=== PATIENT | female | born 1965 | race Caucasian/White ===

== ENCOUNTER → 2017-11-03 | Outpatient (CLI) | payer OTHER ==
[2017-11-03 08:21] LABS: Basophils % (A) 1 %; Eosinophils # (A) 0.2 k/uL (0-0.7); Eosinophils % (A) 4 %; HCT 41.4 % (34.0-46.0); HGB 13.1 gm/dL (11.4-16.0); Lymphocytes # (A) 1.8 k/uL (1.0-4.8); Lymphocytes % (A) 39 %; MCH 29.6 pg (25.0-35.0); MCHC 31.7 g/dL (31.0-37.0); MCV 93.2 fL (80.0-100.0); Mean Platelet Volume 7.1; Monocytes # (A) 0.3 k/uL (0-1.0); Monocytes % (A) 6 %; Neutrophils # (A) 2.2 k/uL (1.3-7.7); Neutrophils % (A) 48 %; Platelet Count 288 k/uL (150-450); RBC 4.44 m/uL (3.80-5.40); RDW 13.1 % (11.5-15.5); WBC 4.6 k/uL (3.8-10.6)
[2017-11-03 08:41] LABS: ALT 29 U/L (9-52); AST 34 U/L (14-36); Albumin 4.1 g/dL (3.5-5.0); Alkaline Phosphatase 70 U/L (38-126); Anion Gap 7 mmol/L; Blood Urea Nitrogen 11 mg/dL (7-17); Calcium 9.4 mg/dL (8.4-10.2); Carbon Dioxide 27 mmol/L (22-30); Chloride 109 mmol/L (98-107); Cholesterol 226 mg/dL (<200); Glucose 91 mg/dL (74-99); Potassium 4.5 mmol/L (3.5-5.1); Sodium 143 mmol/L (137-145); Total Bilirubin 0.6 mg/dL (0.2-1.3); Total Protein 6.8 g/dL (6.3-8.2); Triglycerides 61 mg/dL (<150)
[2017-11-03 08:49] LABS: LDL Cholesterol,Calculated 89 mg/dL (0-99)
[2017-11-03 09:01] LABS: HDL Cholesterol 125 mg/dL (40-60)
== END | disposition home or self-care (01) ==
LOC: LABWHC1 06:51
PROVIDERS: ATTEND Nurse Practitioner Women's Health
DX: Z00.00 Encounter for general adult medical examination without abnormal findings (principal); E78.00 Pure hypercholesterolemia, unspecified
CPT/HCPCS: 36415; 80053; 80061; 84439; 84443; 85025

== ENCOUNTER 2020-05-16 11:49 | Emergency (ER) | payer OTHER ==
[2020-05-16] MEDS ORDERED: SODIUM CHLORIDE 0.9% 1,000 ML IV STA (14:32)
--- NOTE | 2020-05-16 14:48 | ED ---
SOB HPI - General Chief Complaint: Shortness of Breath Stated Complaint: SOB/arm pain Time Seen by Provider: 05/16/20 14:03 Source: patient, RN notes reviewed Mode of arrival: ambulatory Limitations: no limitations - History of Present Illness Initial Comments: Patient is a 54-year-old female that just to the emergency department with shortness of breath and cough. She noted that she's been having symptoms for approximately 3 days but denies being tested for Covid. She notes that she's been trying to ride it out at home with conservative management. She notes that she finally came in because she was started to feel a little worse and was having some neck tightness that was sending numbness and tingling down her left arm. She notes she does have full range of motion and strength in her left arm. She denied any chest pain. She states that she came in to get evaluated. She denied any chest pain headache nausea vomiting diarrhea constipation fever fatigue chills. - Related Data Home Medications Medication Instructions Recorded Confirmed Ergocalciferol (Vitamin D2) 1,250 mcg PO MO 05/16/20 05/16/20 [Drisdol (50,000 Iu)] Escitalopram Oxalate [Lexapro] 20 mg PO DAILY 05/16/20 05/16/20 Previous Rx's Medication Instructions Recorded RX: Azithromycin [Zithromax Z-pack 0 mg PO DIRECTED #1 pack 05/16/20 (6 tabs)] Allergies Allergy/AdvReac Type Severity Reaction Status Date / Time No Known Allergies Allergy Verified 05/16/20 12:40 Review of Systems ROS Statement: Those systems with pertinent positive or pertinent negative responses have been documented in the HPI. ROS Other: All systems not noted in ROS Statement are negative. Past Medical History Past Medical History: No Reported History History of Any Multi-Drug Resistant Organisms: None Reported Past Surgical History: No Surgical Hx Reported Past Psychological History: No Psychological Hx Reported Smoking Status: Never smoker Past Alcohol Use History: Occasional Past Drug Use History: None Reported General Exam Limitations: no limitations General appearance: alert, in no apparent distress Head exam: Present: atraumatic, normocephalic, normal inspection Eye exam: Present: normal appearance, PERRL, EOMI. Absent: scleral icterus, conjunctival injection, periorbital swelling Neck exam: Present: normal inspection. Absent: tenderness, meningismus, lym phadenopathy Respiratory exam: Present: normal lung sounds bilaterally. Absent: respiratory distress, wheezes, rales, rhonchi, stridor Cardiovascular Exam: Present: regular rate, normal rhythm, normal heart sounds. Absent: systolic murmur, diastolic murmur, rubs, gallop, clicks GI/Abdominal exam: Present: soft, normal bowel sounds. Absent: distended, tenderness, guarding, rebound, rigid Extremities exam: Present: normal inspection, full ROM, normal capillary refill. Absent: tenderness, pedal edema, joint swelling, calf tenderness Neurological exam: Present: alert, oriented X3, CN II-XII intact Expanded Cranial nerves: EOM's Intact: Normal, Nystagmus: Normal Motor strength exam: RUE: 5, LUE: 5, RLE: 5, LLE: 5 Psychiatric exam: Present: normal affect, normal mood Skin exam: Present: warm, dry, intact, normal color. Absent: rash Course Vital Signs 05/16/20 05/16/20 05/16/20 12:35 15:05 16:30 Temperature 99.3 F Pulse Rate 95 67 67 Respiratory 19 18 18 Rate Blood Pressure 100/67 107/69 111/69 O2 Sat by Pulse 99 99 98 Oximetry Medical Decision Making - Medical Decision Making The 4-year-old female complaining of shortness of breath with cough. 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 D-dimer elevated, CT chest angio for pulmonary embolism ordered. CT chest negative for any acute pulmonary embolism lying case discussed with Dr. Melendez, patient to discharge home with antibiotics and follow-up primary care. - Lab Data Result diagrams: 05/16/20 15:02 05/16/20 15:02 Lab Results 05/16/20 05/16/20 05/16/20 Range/Units 15:02 15:02 15:02 WBC 3.6 L (3.8-10.6) k/uL RBC 4.58 (3.80-5.40) m/uL Hgb 14.2 (11.4-16.0) gm/dL Hct 41.6 (34.0-46.0) % MCV 91.0 (80.0-100.0) fL MCH 31.1 (25.0-35.0) pg MCHC 34.2 (31.0-37.0) g/dL RDW 13.1 (11.5-15.5) % Plt Count 202 (150-450) k/uL MPV 7.8 Neutrophils % 61 % Lymphocytes % 27 % Monocytes % 10 % Eosinophils % 0 % Basophils % 0 % Neutrophils # 2.2 (1.3-7.7) k/uL Lymphocytes # 1.0 (1.0-4.8) k/uL Monocytes # 0.4 (0-1.0) k/uL Eosinophils # 0.0 (0-0.7) k/uL Basophils # 0.0 (0-0.2) k/uL PT 10.2 (9.0-12.0) sec INR 0.9 (<1.2) APTT 25.6 (22.0-30.0) sec D-Dimer 1.88 H (<0.60) mg/L FEU Sodium 136 L (137-145) mmol/L Potassium 4.4 (3.5-5.1) mmol/L Chloride 104 (98-107) mmol/L Carbon Dioxide 25 (22-30) mmol/L Anion Gap 7 mmol/L BUN 10 (7-17) mg/dL Creatinine 0.67 (0.52-1.04) mg/dL Est GFR (CKD-EPI)AfAm >90 (>60 ml/min/1.73 sqM) Est GFR (CKD-EPI)NonAf >90 (>60 ml/min/1.73 sqM) Glucose 95 (74-99) mg/dL Plasma Lactic Acid Jamal (0.7-2.0) mmol/L Calcium 8.8 (8.4-10.2) mg/dL Total Bilirubin 0.4 (0.2-1.3) mg/dL AST 37 H (14-36) U/L ALT 28 (4-34) U/L Alkaline Phosphatase 93 (38-126) U/L Troponin I (0.000-0.034) ng/mL Total Protein 6.9 (6.3-8.2) g/dL Albumin 4.3 (3.5-5.0) g/dL Coronavirus (PCR) (Not Detectd) 05/16/20 05/16/20 05/16/20 Range/Units 15:02 15:02 15:02 WBC (3.8-10.6) k/uL RBC (3.80-5.40) m/uL Hgb (11.4-16.0) gm/dL Hct (34.0-46.0) % MCV (80.0-100.0) fL MCH (25.0-35.0) pg MCHC (31.0-37.0) g/dL RDW (11.5-15.5) % Plt Count (150-450) k/uL MPV Neutrophils % % Lymphocytes % % Monocytes % % Eosinophils % % Basophils % % Neutrophils # (1.3-7.7) k/uL Lymphocytes # (1.0-4.8) k/uL Monocytes # (0-1.0) k/uL Eosinophils # (0-0.7) k/uL Basophils # (0-0.2) k/uL PT (9.0-12.0) sec INR (<1.2) APTT (22.0-30.0) sec D-Dimer (<0.60) mg/L FEU Sodium (137-145) mmol/L Potassium (3.5-5.1) mmol/L Chloride (98-107) mmol/L Carbon Dioxide (22-30) mmol/L Anion Gap mmol/L BUN (7-17) mg/dL Creatinine (0.52-1.04) mg/dL Est GFR (CKD-EPI)AfAm (>60 ml/min/1.73 sqM) Est GFR (CKD-EPI)NonAf (>60 ml/min/1.73 sqM) Glucose (74-99) mg/dL Plasma Lactic Acid Jamal 0.8 (0.7-2.0) mmol/L Calcium (8.4-10.2) mg/dL Total Bilirubin (0.2-1.3) mg/dL AST (14-36) U/L ALT (4-34) U/L Alkaline Phosphatase (38-126) U/L Troponin I <0.012 (0.000-0.034) ng/mL Total Protein (6.3-8.2) g/dL Albumin (3.5-5.0) g/dL Coronavirus (PCR) Not Detected (Not Detectd) - EKG Data -: EKG Interpreted by Ak EKG shows normal: sinus rhythm Rate: normal EKG Comments: Ventricular rate 72 bpm, IN interval 148 ms, QRS duration 80 ms, QT/QTc 402/440 ms, PRT axes 69/8/52. Normal sinus rhythm, normal ECG. Disposition Clinical Impression: Pneumonia Disposition: HOME SELF-CARE Condition: Stable Instructions (If sedation given, give patient instructions): Bacterial Pneum onia (ED) Additional Instructions: Please return to the Emergency Department if symptoms worsen or any other concerns. Follow-up with primary care in 3-5 days. Take antibiotics as prescribed until complete. Increase oral fluids. Prescriptions: RX: Azithromycin [Zithromax Z-pack (6 tabs)] 0 mg PO DIRECTED #1 pack Is patient prescribed a controlled substance at d/c from ED?: No Referrals: Yadiel Owen Jr, [Primary Care Provider] - 1-2 days Time of Disposition: 17:06
[2020-05-16 15:27] LABS: ALT 28 U/L (4-34); AST 37 U/L (14-36); African American GFR (CKD) >90 (>60 ml/min/1.73 sqM); Albumin 4.3 g/dL (3.5-5.0); Alkaline Phosphatase 93 U/L (38-126); Anion Gap 7 mmol/L; Blood Urea Nitrogen 10 mg/dL (7-17); Calcium 8.8 mg/dL (8.4-10.2); Carbon Dioxide 25 mmol/L (22-30); Chloride 104 mmol/L (98-107); Glucose 95 mg/dL (74-99); Non-African American GFR(CKD) >90 (>60 ml/min/1.73 sqM); Potassium 4.4 mmol/L (3.5-5.1); Sodium 136 mmol/L (137-145); Total Bilirubin 0.4 mg/dL (0.2-1.3); Total Protein 6.9 g/dL (6.3-8.2)
[2020-05-16 15:33] LABS: INR 0.9 (<1.2); Partial Thromboplastin Time 25.6 sec (22.0-30.0); Prothrombin Time 10.2 sec (9.0-12.0)
[2020-05-16 15:34] LABS: Basophils % (A) 0 %; Eosinophils % (A) 0 %; HCT 41.6 % (34.0-46.0); HGB 14.2 gm/dL (11.4-16.0); Lymphocytes % (A) 27 %; MCH 31.1 pg (25.0-35.0); MCHC 34.2 g/dL (31.0-37.0); Mean Platelet Volume 7.8; Monocytes # (A) 0.4 k/uL (0-1.0); Monocytes % (A) 10 %; Neutrophils # (A) 2.2 k/uL (1.3-7.7); Neutrophils % (A) 61 %; Platelet Count 202 k/uL (150-450); RBC 4.58 m/uL (3.80-5.40); RDW 13.1 % (11.5-15.5); WBC 3.6 k/uL (3.8-10.6)
--- NOTE | 2020-05-16 15:37 | XR ---
EXAMINATION TYPE: XR chest 2V DATE OF EXAM: 05/16/2020 COMPARISON: NONE HISTORY: Shortness of breath TECHNIQUE: Frontal and lateral views of the chest are obtained. FINDINGS: Scattered senescent parenchymal changes noted. Hyperinflation compatible with COPD. No evidence for infiltrate. No evidence for atelectasis. Heart size is stable. Mediastinal structures are stable and grossly unremarkable. No evidence for hilar prominence. Degenerative changes dorsal spine. IMPRESSION: 1. No evidence for acute pulmonary disease.
[2020-05-16 15:38] LABS: D-Dimer 1.88 mg/L FEU (<0.60)
--- NOTE | 2020-05-16 16:36 | CT ---
CT CHEST FOR PULMONARY EMBOLISM. EXAMINATION TYPE: CT chest angio for PE DATE OF EXAM: 05/16/2020 INDICATION: Elevated d-dimer CT DLP: 230.8 mGycm, Automated exposure control for dose reduction was used. CONTRAST: Patient injected with 100 mL of Isovue 370. COMPARISON: None TECHNIQUE: CT of the chest is performed on a spiral scan at 2 mm thick sections. Study is performed with intravenous contrast timed for evaluation for pulmonary embolism. This will limit additional po rtions of the evaluation. 3-D MIP images reconstructed by the technologist are reviewed on the compu ter in the coronal and sagittal planes. FINDINGS: No persistent filling defects are evident to suggest an acute pulmonary embolism. No mediastinal or hilar adenopathy enlarged by CT criteria is evident. The ascending aorta diameter at the level of the main pulmonary artery is 2.9 cm. The main pulmonary artery diameter at the bifur cation is 2.6 cm. There is some compressive atelectasis at the right lung base. Limited CT section through the upper ab domen are unremarkable. IMPRESSIONS: 1. No acute pulmonary embolism. 2. Small consolidation posterior dependent right lung base may be related atelectasis or pneumonia
[2020-05-16 17:44] VITALS: BP 108/71; PULSE 72; RESP 20; TEMP 98.1
== END 2020-05-16 17:20 | disposition home or self-care (01) ==
LOC: EC 11:49
DX: J18.9 Pneumonia, unspecified organism (principal); Z20.822 Contact with and (suspected) exposure to COVID-19
CPT/HCPCS: 36415; 93005; 85379; 80053; 83605; 84484; 85025; 85610; 85730; 87635; 71046; 71275; 99285; Q9967

== ENCOUNTER → 2023-05-04 | Outpatient (CLI) | payer OTHER ==
--- NOTE | 2023-05-05 13:49 | MM ---
Reason for Exam: Follow-up at short interval from prior study. Last mammogram was performed 2 year(s) and 5 month(s) ago. Patient History: Menarche at age 14. First Full-Term at age 32. Late child-bearing (after 30). Postmenopausal. MG stereo VAD BX LT - 2 on the Left side. MG stereo VAD BX LT - 2 on the Left side. MG stereo VAD BX RT on the Right side. Maternal grandmother had breast cancer. Maternal aunt had breast cancer, age 70. Maternal aunt had breast cancer, age 70. Mother had ovarian cancer, age 69. Risk Values: Tejal 5 year model risk: 2.5%. NCI Lifetime model risk: 14.0%. Prior Study Comparison: 08/30/2019 Bilateral Screening Mammogram, [facility]. 11/22/2020 Bilateral Screening Mammogram, [facility]. 12/06/2020 Bilateral Diagnostic Mammogram, [facility]. 09/09/2022 Bilateral Diagnostic Ultrasound, [facility]. 04/02/2023 Bilateral Diagnostic Ultrasound, [facility]. Tissue Density: There are scattered areas of fibroglandular density. Findings: Analyzed By CAD. The pattern is symmetrical. Postsurgical biopsy clips are within the left breast. Benign-appearing calcification is present bilaterally. These appear to be increasing over the interval. Benign vascular calcification is present bilaterally. Postsurgical core marker is within the right breast, present previously. No suspicious groups of microcalcifications, spiculated or lobular masses, architectural distortion or other secondary signs of malignancy are mammographically apparent. Overall Assessment: Benign, BI-RAD 2 Management: Screening Mammogram of both breasts in 1 year. A negative mammogram report should not preclude additional follow up of suspicious palpable abnormalities. Patient should continue monthly self breast exam. A clinical breast exam by your physician is recommended on an annual basis and results should be correlated with mammographic findings. Electronically signed and approved by: Celestino Gallardo D.O. Radiologis
== END | disposition home or self-care (01) ==
LOC: RADMAMWWP 13:31
PROVIDERS: ATTEND Family Medicine
DX: R92.323 Mammographic fibroglandular density, bilateral breasts (principal); Z80.3 Family history of malignant neoplasm of breast; Z78.0 Asymptomatic menopausal state
CPT/HCPCS: 77066; G0279; 77062

== ENCOUNTER → 2023-09-09 | Outpatient (CLI) | payer OTHER ==
--- NOTE | 2023-09-09 15:14 | BD ---
EXAMINATION TYPE: Axial Bone Density DATE OF EXAM: 09/09/2023 CLINICAL HISTORY: 58 years old Female. ICD-10 CODE: Z78.0 ASYMPTOMATIC MENOPAUSAL STATE Height: 62 in Weight: 114 lbs EXAM MEASUREMENTS: Bone mineral densitometry was performed using the KILTR System. Bone mineral density as measured about the Lumbar spine is: ----- L1-L4(G/cm2): 1.163 T Score Values are as follows: ----- L1: -0.4 ----- L2: -0.3 ----- L3: 0.3 ----- L4: -0.4 ----- L1-L4: -0.1 Z Score Values are as follows: ----- L1: 1.2 ----- L2: 1.3 ----- L3: 1.8 ----- L4: 1.2 ----- L1-L4: 1.4 Bone mineral density baseline Bone mineral density about the R hip (g/cm2): 0.928 Bone mineral density about the L hip (g/cm2): 0.905 T Score values are as follows: -----R Neck: -1.0 -----L Neck: -0.9 -----R Total: -0.6 -----L Total: -0.8 Z Score values are as follows: -----R Neck: 0.5 -----L Neck: 0.6 -----R Total: 0.5 -----L Total: 0.4 Bone mineral density baseline FRAX%s: The graph provided illustrates a 6.2% chance for a major osteoporotic fx and a 0.4% chance fo r the hips probability for fx in 10 years time. IMPRESSION: Normal (Values between +1 and -1 indicate normal bone mass). Consider repeating this study in 5 year s or sooner if there is some new clinical indication. NOTE: T-SCORE=SD OF THE YOUNG ADULT MEAN.
== END | disposition home or self-care (01) ==
LOC: RADBDWWP 14:21
PROVIDERS: ATTEND Family Medicine
DX: Z78.0 Asymptomatic menopausal state (principal)
CPT/HCPCS: 77080

== ENCOUNTER → 2023-09-09 | Outpatient (CLI) | payer OTHER ==
--- NOTE | 2023-09-09 15:53 | XR ---
EXAMINATION TYPE: XR elbow complete RT DATE OF EXAM: 09/09/2023 3:15 PM CLINICAL INDICATION:Female, 58 years old with history of M25.521 PAIN IN RIGHT ELBOW; [facility] COMPARISON: None TECHNIQUE: XR elbow complete RT; elbow was examined in AP, lateral, and oblique projections. FINDINGS: No evidence of any acute osseous pathology, joint dislocation, or soft tissue swelling is n oted. No evidence of joint effusion is present. IMPRESSION: No evidence of acute fracture.
--- NOTE | 2023-09-09 15:53 | XR ---
EXAMINATION TYPE: XR Hip Complete LT DATE OF EXAM: 09/09/2023 3:15 PM CLINICAL INDICATION:Female, 58 years old with history of M25.552 PAIN LEFT HIP; [facility] COMPARISON: None. TECHNIQUE: XR Hip Complete LT; hip was examined in the frontal and lateral projections and a AP pelvi s. FINDINGS: No evidence for acute process, joint dislocation or significant soft tissue swelling. Osteo phyte formation of the superior acetabulum of the hip. There is mild joint space narrowing. IMPRESSION: 1. No evidence for acute process. 2. Mild hip osteoarthrosis.
== END | disposition home or self-care (01) ==
LOC: RADXRMAIN 14:54
PROVIDERS: ATTEND Family Medicine
DX: M16.12 Unilateral primary osteoarthritis, left hip (principal); M25.521 Pain in right elbow
CPT/HCPCS: 73502

== ENCOUNTER → 2023-11-05 | Outpatient (CLI) | payer OTHER ==
--- NOTE | 2023-11-09 08:32 | US ---
EXAMINATION TYPE: US abdomen complete DATE OF EXAM: 11/05/2023 COMPARISON: NONE CLINICAL INDICATION: Female, 58 years old with history of R16.0 HEPATOMEGALY; Hepatomegaly TECHNIQUE: Multiple sonographic images of the abdomen are obtained. FINDINGS: EXAM MEASUREMENTS: Liver Length: 12.8 cm Gallbladder Wall: .1 cm CBD: .4 cm Spleen: 8.0 cm Right Kidney: 8.9 x 3.5 x 4.1 cm Left Kidney: 10.2 x 5.5 x 3.8 cm RIVET BUCKER NOTES: Pancreas: Tail obscured by overlying bowel gas Liver: Anechoic area seen 1.3 x1.2 x 1.2 cm adjacent to gallbladder appears to be a hepatic cyst. Gallbladder: wnl Evidence for sonographic Rodríguez's sign: No CBD: wnl Spleen: wnl Right Kidney: No hydronephrosis or masses seen Left Kidney: No hydronephrosis or masses seen Upper IVC: wnl Abd Aorta: wnl IMPRESSION: 1. Hepatic cyst [facility], , 11/09/2023 8:30 AM
== END | disposition home or self-care (01) ==
LOC: RADUSWWP 07:47
PROVIDERS: ATTEND Internal Medicine Rheumatology
DX: R16.0 Hepatomegaly, not elsewhere classified
CPT/HCPCS: 76700